=== PATIENT | female | born 1950 | race Caucasian/White ===

== ENCOUNTER 2017-12-06 09:59 | Emergency (ER) | payer OTHER, MEDICARE ==
[~2017-12-06] VITALS: Ht 152.4 cm; Wt 80.0 kg
[~2017-12-06 09:59] MED LIST: ADVIL200 MG PO; DIOVAN HCT 81 TABLET PO; Flagyl PO; NON-ASPIRIN EX500 M2 PO; PREDNISONE10 MG PO; PRILOSEC20 MG PO; VENTOLIN HFA18 GM IH; XANAX0.5 MG PO; ZYRTEC10 M2 PO
[2017-12-06 10:39] LABS: HEMATOCRIT 41.6 % (36.0-46.0); HEMOGLOBIN 14.3 G/DL (11.9-15.5); MCH 31.2 PG (29.0-34.0); MCHC 34.4 G/DL (30.0-36.0); MCV 90.8 FL (83-99); PLATELET COUNT 341 K/uL (156-360); RBC DIS.WIDTH-CV 13.2 % (11.8-14.6); RED BLOOD COUNT 4.58 M/uL (3.80-5.20); WHITE BLOOD COUNT 9.9 K/uL (4.1-10.2)
[2017-12-06 10:52] LABS: ALBUMIN 3.8 g/dL (3.2-4.8); CHLORIDE 102 mEq/L (99-109); POTASSIUM 3.7 mEq/L (3.7-5.4); SODIUM 137 mEq/L (136-147)
[2017-12-06 10:55] LABS: GLUCOSE 133 mg/dL (70-99); TOTAL PROTEIN 7.4 g/dL (6.4-8.3)
[2017-12-06 10:57] LABS: TOTAL BILIRUBIN 0.2 mg/dL (0.0-1.0)
[2017-12-06 10:58] LABS: ALKALINE PHOSPHATASE 75 IU/L (3-129); CREATININE 0.7 mg/dL (0.6-1.3); GFR ESTIMATE (CALCULATED) > 59 mL/min/
[2017-12-06 10:59] LABS: UREA NITROGEN (BUN) 15 mg/dL (9-23)
[2017-12-06 11:00] LABS: AST (GOT) 13 IU/L (2-34)
[2017-12-06 11:01] LABS: ALT (GPT) 13 IU/L (3-49)
[2017-12-06 11:02] LABS: LIPASE 18 U/L (1.0-51.0)
[2017-12-06 11:03] LABS: TROP-I INTERPRETATION NEGATIVE; TROPONIN-I < 0.01 ng/mL (0.0-0.30)
[2017-12-06 11:38] LABS: APPEARANCE CLEAR ((CLEAR)); BILIRUBIN NEGATIVE; BLOOD SMALL; COLOR STRAW ((YELLOW)); GLUCOSE (STRIP) NEGATIVE; KETONES NEGATIVE; LEUKOCYTES NEGATIVE; NITRITE NEGATIVE; PROTEIN (STRIP) NEGATIVE; SPECIFIC GRAVITY 1.006 (1.000-1.030); UROBILINOGEN 0.2 MG/DL (0.2-1.0)
[2017-12-06 11:44] LABS: BACTERIA NONE SEEN /HPF; EPITHELIAL CELLS RARE /HPF; MUCUS NONE SEEN /LPF; RED BLOOD CELLS 0-5 /HPF (0-5); UCUL ADDED? NO; WHITE BLOOD CELLS 0-5 /HPF (0-5)
[2017-12-06] MEDS ORDERED: PREDNISONE20 MG PO (13:55)
[2017-12-06] MEDS ORDERED: BENTYL20 MG PO (13:56)
[2017-12-06 14:35] VITALS: BP 144/73
== END 2017-12-06 14:39 | disposition home or self-care (01) ==
LOC: EME 09:59
PROVIDERS: Emergency Medicine
DX: K50.90 Crohn's disease, unspecified, without complications (principal); K76.0 Fatty (change of) liver, not elsewhere classified; I10 Essential (primary) hypertension; F32.9 Major depressive disorder, single episode, unspecified; F17.200 Nicotine dependence, unspecified, uncomplicated; Z79.82 Long term (current) use of aspirin; Z88.0 Allergy status to penicillin
CPT/HCPCS: 74177; 80053; 81003; 83605; 83690; 84484; 85027; 93005; 99281; 99285; J2270; J2405; J2920; J7030; S0028